=== PATIENT | female | born 1995 | race Caucasian/White ===

== ENCOUNTER 2019-07-18 14:55 | Emergency (ER) | payer SELFPAY ==
[2019-07-18] MEDS ORDERED: FAMOTIDINE 20 MG TAB ONE (15:44)
--- NOTE | 2019-07-18 17:17 | ER ---
Nurse's Notes [facility] Name: Renea Sofia Age: 23 yrs Sex: Female : 1995 Arrival Date: 07/18/2019 Time: 15:13 Bed 20 Private MD: Diagnosis: Cellulitis of left upper limb Presentation: 07/17 15:29 Chief complaint: Patient states: Laying in the pool with eyes closed on Tuesday and felt jl7 a sharp sting or bite, thumb was a little red Tuesday night, woke Tuesday and hand was swollen and the swelling has gotten worse, denies pain, hand noted to be swollen and red tracing up to mid forearm. Coronavirus screen: Proceed with normal triage. Patient denies a cough. Patient denies shortness of breath or difficulty breathing. Patient denies measured and/or subjective temperature greater than 100.4F prior to today's visit. Patient denies travel on a cruise ship or to a country the [facility] currently lists as an affected area. Patient denies contact with known and/or suspected case of COVID-19. Ebola Screen: No symptoms or risks identified at this time. Initial Sepsis Screen: Does the patient meet any 2 criteria? No. Patient's initial sepsis screen is negative. Does the patient have a suspected source of infection? No. Patient's initial sepsis screen is negative. Risk Assessment: Do you want to hurt yourself or someone else? Patient reports no desire to harm self or others. Onset of symptoms was July 16, 2019. Care prior to arrival: None. 15:29 Method Of Arrival: Ambulatory [facility] 15:29 Acuity: FAINA 3 jl7 Triage Assessment: 15:33 General: Appears in no apparent distress. uncomfortable, Behavior is calm, cooperative, jl7 appropriate for age. Pain: Denies pain. Neuro: Level of Consciousness is awake, alert, obeys commands, Oriented to person, place, time, situation. Cardiovascular: Patient's skin is warm and dry. Respiratory: Airway is patent Respiratory effort is even, unlabored, Respiratory pattern is regular, symmetrical. Derm: Skin is pink, warm \T\ dry. Musculoskeletal: Swelling present in right hand. 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 - Social history:: Smoking status: Patient reports the use of cigarette tobacco products, smokes one-half pack cigarettes per day, Patient uses alcohol, occasionally. Screenin:00 Abuse screen: Denies threats or abuse. Denies injuries from another. Nutritional sv screening: No deficits noted. Tuberculosis screening: No symptoms or risk factors identified. Fall Risk None identified. Assessment: 17:00 General: Appears in no apparent distress. uncomfortable, well developed, Behavior is sv calm, cooperative, appropriate for age. 17:00 Pain: Denies pain. Neuro: Level of Consciousness is awake, alert, obeys commands, sv Oriented to person, place, time, situation, Moves all extremities. Gait is steady. Respiratory: Airway is patent Respiratory effort is even, unlabored, Respiratory pattern is regular, symmetrical, Denies shortness of breath. Derm: Skin is normal. Musculoskeletal: Range of motion: intact in all extremities, Swelling present in dorsal aspect of right forearm, right wrist and right hand. Injury Description: Bite sustained to dorsal aspect of distal phalanx of right thumb caused by an unknown animal, was sustained 2 days ago. Vital Signs: 15:29 BP 163 / 105; Pulse 58; Resp 16; Temp 97.9; Pulse Ox 99% ; Weight 81.65 kg; Pain 0/10; jl7 17:08 BP 127 / 94; Pulse 65; Resp 17; Temp 97.6(TE); Pulse Ox 99% on R/A; mh5 ED Course: 15:13 Patient arrived in ED. ds1 15:32 Triage completed. jl7 15:33 Arm band placed on right wrist. 7 16:56 Kaus[facility] Cordero [facility] 16:56 Zaki Crawford MD is Attending Physician. [facility] 17:00 Maria De Jesus Colon RN is Primary Nurse. 17:00 Nurse Practitioner and/or Physician Rn Manager to see patient. sv 17:00 Patient has correct armband on for positive identification. Bed in low position. Call light in reach. 17:12 Patient has correct armband on for positive identification. Bed in low position. Call mh5 light in reach. Ice pack to injury. . Pulse ox on. NIBP on. 17:24 No provider procedures requiring assistance completed. Patient did not have IV access sv during this emergency room visit. Administered Medications: 15:39 Drug: Pepcid 20 mg Route: PO; jl7 17:00 Follow up: Response: No adverse reaction sv Outcome: 17:16 Discharge ordered by . juliann 17:24 Discharged to home ambulatory. sv 17:24 Condition: stable 17:24 Discharge instructions given to patient, Instructed on discharge instructions, follow up and referral plans. no drinking with medication, medication usage, Demonstrated understanding of instructions, follow-up care, medications, Prescriptions given X 3. 17:25 Patient left the ED. sv Signatures: Maria De Jesus Colon, RN RN Kaushal Owusu PA PA jmm Sanford, Demi ds1 Dora Patel [facility] Rachel Blackman RN RN jl7
--- NOTE | 2019-07-18 17:17 | EDPHYS ---
Physician Documentation [facility] Name: Renea Sofia Age: 23 yrs Sex: Female : 1995 Arrival Date: 07/18/2019 Time: 15:13 Bed 20 Private MD: ED Physician Zaki Crawford HPI: 07/17 17:10 This 23 yrs old Female presents to ER via Ambulatory with complaints of Hand jmm Swelling. 17:10 The patient or guardian reports swelling. Onset: The symptoms/episode began/occurred jmm gradually, 2 day(s) ago. Modifying factors: The symptoms are alleviated by nothing, the symptoms are aggravated by nothing. This is a 23 year old female with no chronic medical conditions that presents to the ED with complaints of left hand swelling. Patient states she was most likely stung while laying at a pool 2 days ago. patient awoke yesterday with increased swelling. patient denies pain but states her hand is itchy. denies fever, chills, body aches. . 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 - Social history:: Smoking status: Patient reports the use of cigarette tobacco products, smokes one-half pack cigarettes per day, Patient uses alcohol, occasionally. ROS: 17:10 Constitutional: Negative for fever, chills, and weight loss, Cardiovascular: Negative jmm for chest pain, palpitations, and edema, Respiratory: Negative for shortness of breath, cough, wheezing, and pleuritic chest pain. 17:10 MS/extremity: Positive for erythema, swelling. 17:10 Skin: Positive for 17:10 Allergy/Immunology: Positive for pruritus. 17:10 All other systems are negative. Exam: 17:10 Constitutional: This is a well developed, well nourished patient who is awake, alert, jmm and in no acute distress. Head/Face: atraumatic. Eyes: EOMI, no conjunctival erythema appreciated ENT: Moist Mucus Membranes Neck: Trachea midline, Supple Chest/axilla: Normal chest wall appearance and motion. Cardiovascular: Regular rate and rhythm. No edema appreciated Respiratory: Normal respirations, no respiratory distress appreciated Abdomen/GI: Non distended, soft Back: Normal ROM 17:10 Musculoskeletal/extremity: FROM appreciated to the left hand, no pain on extension of all the digits, compartments are soft, NVI. 17:10 Skin: erythema and induration appreciated to the left hand diffusely. non tender to palpation,. 17:10 Neuro: Orientation: is normal, Mentation: is normal, Memory: is normal. 17:10 Psych: Behavior/mood is pleasant, cooperative. Vital Signs: 15:29 BP 163 / 105; Pulse 58; Resp 16; Temp 97.9; Pulse Ox 99% ; Weight 81.65 kg; Pain 0/10; jl7 17:08 BP 127 / 94; Pulse 65; Resp 17; Temp 97.6(TE); Pulse Ox 99% on R/A; mh5 MDM: 17:10 Patient medically screened. juliann 17:15 Data reviewed: vital signs, nurses notes. Counseling: I had a detailed discussion with juliann the patient and/or guardian regarding: the historical points, exam findings, and any diagnostic results supporting the discharge/admit diagnosis, the need for outpatient follow up, to return to the emergency department if symptoms worsen or persist or if there are any questions or concerns that arise at home. ED course: No pain on evaluation. I do not suspect flexor tenosynovitis. Patient is afebrile. Patient is alert and non toxic in appearance in the ED. Most likely cellulitis secondary to insect bite. Patient advised to follow up with pcp for reevaluation. . Administered Medications: 15:39 Drug: Pepcid 20 mg Route: PO; jl7 17:00 Follow up: Response: No adverse reaction sv Disposition: 07/18 08:18 Co-signature as Attending Physician, Zaki Crawford MD I agree with the assessment and kdr plan of care. Disposition: 07/18/19 17:16 Discharged to Home. Impression: Cellulitis of left upper limb. - Condition is Stable. - Discharge Instructions: Cellulitis, Adult. - Prescriptions for Hydroxyzine HCl 25 mg Oral Tablet - take 1 tablet by ORAL route every 6 hours As needed; 30 tablet. Doxycycline Hyclate 100 mg Oral Tablet - take 1 tablet by ORAL route every 12 hours; 20 tablet. Bactrim DS 800- 160 mg Oral Tablet - take 1 tablet by ORAL route every 12 hours for 10 days; 20 tablet. - Medication Reconciliation Form, Thank You Letter, Antibiotic Education, Prescription Opioid Use form. - Follow up: Private Physician; When: 2 - 3 days; Reason: Recheck today's complaints, Continuance of care, Re-evaluation by your physician. Signatures: Maria De Jesus Colon RN RN Zaki Hall MD MD kdr Mickail, Joel, PA PA jmm Leal, Jahala, RN RN jl7 Corrections: (The following items were deleted from the chart) 07/17 17:25 17:16 07/18/2019 17:16 Discharged to Home. Impression: Cellulitis of left upper limb. sv Condition is Stable. Forms are Medication Reconciliation Form, Thank You Letter, Antibiotic Education, Prescription Opioid Use. Follow up: Private Physician; When: 2 - 3 days; Reason: Recheck today's complaints, Continuance of care, Re-evaluation by your physician. juliann
[2019-07-19 16:14] VITALS: O2SAT 99
[2019-07-19 16:16] VITALS: BP 127/94; TEMP 97.6
== END 2019-07-18 17:25 | disposition home or self-care (01) ==
LOC: ER 14:55
DX: L03.114 Cellulitis of left upper limb (principal); F17.210 Nicotine dependence, cigarettes, uncomplicated
CPT/HCPCS: 99283